=== PATIENT | female | born 1975 | race African-American/Black ===

== ENCOUNTER 2016-09-09 17:20 | Emergency (ER) | payer BC ==
[~2016-09-09] VITALS: Ht 167.6 cm; Wt 110.0 kg
[2016-09-09 17:25] VITALS: BP 200/114; PULSE 102; RESP 16; TEMP 97.6; O2SAT 100
[2016-09-09] MEDS ORDERED: METO50TA PO (17:27)
[2016-09-09] MEDS ORDERED: SODIUM CHLOR 0.9% 1000 ML INJ 1,000 ML IV SCH (17:33)
[2016-09-09 17:35] VITALS: BP 163/102; PULSE 100; RESP 16; O2SAT 100
--- NOTE | 2016-09-09 17:36 | PD ---
HPI Chief Complaint: Allergic/Adverse Reaction Time Seen by Provider: 17:28 Travel History International Travel<30 days: No Contact w/Intl Traveler<30days: No Traveled to known affect area: No History of Present Illness HPI 40-year-old female here for evaluation of allergic reaction. Patient reports that about 30 minutes prior to arrival she began to develop hives. She has a history of an allergy to ibuprofen and has been prescribed EpiPen in the past. States that she used her EpiPen one week ago for similar symptoms, however does not have any more at home. Aside from ibuprofen, she is unsure what she is allergic to. She denies any known new exposures. Rashes pruritic. She took two 25 mg Benadryl's at home with moderate improvement in pruritus. No dyspnea. No chest pain. No abdominal pain. No nausea or vomiting. No difficulty swallowing. PFSH Social History Alcohol Use: Yes (occasionally) Tobacco Use: Yes (socially) Allergies-Medications (Allergen,Severity, Reaction): Coded Allergies: Motrin (Verified Allergy, Severe, 09/09/16) Reported Meds & Prescriptions Reported Meds & Active Scripts Active Pepcid (Famotidine) 20 Mg Tab 20 Mg PO BID Prednisone 50 Mg Tab 50 Mg PO DAILY 5 Days Epinephrine Inj (Epinephrine) 0.3 Mg/0.3 Ml Pfpen 0.3 Mg IM ONCE PRN Reported Metoprolol Tartrate 50 Mg Tab 50 Mg PO BID Review of Systems Except as stated in HPI: all other systems reviewed are Neg Physical Exam Narrative GENERAL: Well-developed, well-nourished, comfortable, no acute distress. SKIN: Diffuse urticarial rash. No blisters. HEAD: Atraumatic. Normocephalic. EYES: Pupils equal and round. No scleral icterus. No injection or drainage. ENT: No nasal bleeding or discharge. Mucous membranes pink and moist. No tongue or lip swelling. No drooling or stridor. No intraoral lesions. Normal phonation. NECK: Trachea midline. No JVD. CARDIOVASCULAR: Regular rate and rhythm. RESPIRATORY: No accessory muscle use. Clear to auscultation. Breath sounds equal bilaterally. GASTROINTESTINAL: Abdomen soft, non-tender, nondistended. MUSCULOSKELETAL: No obvious deformities. No clubbing. No cyanosis. No edema. NEUROLOGICAL: Awake and alert. No obvious cranial nerve deficits. Motor grossly within normal limits. Normal speech. PSYCHIATRIC: Appropriate mood and affect; insight and judgment normal. Data Data Last Documented VS Vital Signs Date Time Temp Pulse Resp B/P Pulse Ox O2 Delivery O2 Flow Rate FiO2 09/09/16 18:21 95 16 158/93 99 09/09/16 18:00 Room Air 09/09/16 17:25 97.6 Orders Ecg Monitoring (09/09/16 17:33) Iv Access Insert/Monitor (09/09/16 17:33) Oximetry (09/09/16 17:33) Methylprednisolone So Succ Inj (Solumedr (09/09/16 17:45) Famotidine Inj (Pepcid Inj) (09/09/16 17:45) Sodium Chlor 0.9% 1000 Ml Inj (Ns 1000 M (09/09/16 17:33) Sodium Chloride 0.9% Flush (Ns Flush) (09/09/16 17:45) MDM Medical Decision Making Medical Screen Exam Complete: Yes Emergency Medical Condition: Yes Differential Diagnosis Allergic reaction, anaphylaxis Narrative Course Vital signs reviewed. The patient was given a dose of IV Solu-Medrol, IV Pepcid, and a liter of normal saline IV, and was observed in the emergency department. After about hour she reports feeling much better and states that she would like to be discharged home. Hives have significantly improved. There is no tongue or lip swelling. No drooling or stridor. She is normotensive. No signs of anaphylaxis. I will refill her prescription for an EpiPen as well as discharge her home with a prescription for prednisone. She is also requesting a prescription for Pepcid. She will follow-up with her primary care physician this week. She was informed on when to return to the emergency department. She verbalizes understanding and agreement with plan. Diagnosis Primary Impression: Allergic reaction Qualified Code: T78.40XA - Allergic reaction, initial encounter Referrals: Primary Care Physician 3 days Additional Instructions: Follow-up with your primary care physician this week. Return to the emergency department for worsening symptoms or any other concerns. Scripts Famotidine (Pepcid)20 Mg Tab20 Mg PO BID #30 TAB Ref 0 Prov:Cristiano Banuelos MD 09/09/16 Prednisone 50 Mg Tab50 Mg PO DAILY 5 Days Ref 0 Prov:Cristiano Banuelos MD 09/09/16 Epinephrine Inj 0.3 Mg/0.3 Ml Pfpen0.3 Mg IM ONCE PRN (ALLERGIC REACTION) #1 PEN Ref 2 Prov:Cristiano Banuelos MD 09/09/16 Disposition: 01 DISCHARGE HOME Condition: Stable Cristiano Banuelos MD Sep 09, 2016 17:36
[2016-09-09] MEDS ORDERED: SODIUM CHLORIDE 0.9% FLUSH 10 ML FLUSH IV FLUSH PRN (17:45)
[2016-09-09] MEDS ORDERED: FAMOTIDINE 20 MG/2 ML VIAL IV PUSH ONE (17:45)
[2016-09-09] MEDS ORDERED: methylPREDNISolone SOD SUCC 125 MG/2 ML VIAL IVP ONE (17:45)
[2016-09-09 18:00] VITALS: BP 155/91; PULSE 90; RESP 16; O2SAT 99
[2016-09-09] MEDS ORDERED: EPIN1INJ17 IM (18:08)
[2016-09-09] MEDS ORDERED: PRED50 PO (18:08)
[2016-09-09] MEDS ORDERED: FAMO1TAB37 PO (18:08)
[2016-09-09 18:21] VITALS: BP 158/93
== END 2016-09-09 19:00 | disposition home or self-care (01) ==
LOC: PHED 17:20
DX: T78.40XA Allergy, unspecified, initial encounter (principal)
CPT/HCPCS: 96374; 96375; 99283; J2930; J7030